=== PATIENT | male | born 1940 | race Caucasian/White ===

== ENCOUNTER → 2018-12-08 10:55 | Outpatient (CLI) | payer MEDICARE, OTHER, SELFPAY ==
[2018-12-08 11:40] LABS: Add Manual Diff / Slide Review NO; Basophils Absolute Auto 100 /uL (0-100); Basophils Percent Auto 1.1 % (0-2); Eosinophils Absolute Auto 300 /uL (0-450); Eosinophils Percent Auto 4.8 % (2-4); Hematocrit 42.8 % (41-53); Hemoglobin 14.4 g/dL (13.5-17.5); Lymphocytes Absolute Auto 1500 /uL (1100-4500); Lymphocytes Percent Auto 25.4 % (25-40); Mean Corpuscular HGB Conc 33.7 % (30-36); Mean Corpuscular Hemoglobin 33.3 PG (26-34); Mean Corpuscular Volume 98.8 fL (80-100); Monocytes Absolute Auto 400 /uL (0-900); Monocytes Percent Auto 6.7 % (3-14); Neutrophils Absolute Auto 3700 /uL (1500-7000); Platelet Count 174 X10^3/uL (150-400); Red Blood Cell Count 4.33 X10^6/uL (4.5-5.9); White Blood Cell Count 6.1 X10^3/uL (4.5-11.0)
[2018-12-08 11:59] LABS: B Type Natriuretic Peptide 199 (<100)
[2018-12-08 12:14] LABS: Alanine Aminotransferase 24 IU/L (21-72); Albumin 4.2 g/dL (3.5-5.0); Albumin Globulin Ratio 1.6 (1.0-2.8); Alkaline Phosphatase 43 U/L (38-126); Aspartate Aminotransferase 29 IU/L (17-59); BUN Creatinine Ratio 23.3 (6-22); Bilirubin Total 1.1 mg/dL (0.2-1.3); Blood Urea Nitrogen 21 mg/dL (9-20); Calcium 9.1 mg/dL (8.4-10.2); Carbon Dioxide 28 mmol/L (22-32); Chloride 106 mmol/L (98-107); Estimated Glomerular Filt Rate > 60.0 mL/min (>60); Globulin 2.7 g/dL (1.7-4.1); Glucose 98 mg/dL (80-110); HEMOLYSIS < 15 (0-50); Potassium 4.8 mmol/L (3.4-5.1); Sodium 142 mmol/L (137-145); Total Protein 6.9 g/dL (6.3-8.2)
[2018-12-08 12:19] LABS: High Sensitivity CRP - Cardiac 0.6 mg/L (1.0-3.0); Rheumatoid Factor < 8.6 IU/mL (<12.0)
[2018-12-08 12:32] LABS: Erythrocyte Sedimentation Rate 2 MM/HR (0-15)
[2018-12-10 20:22] LABS: ANA Screen, IFA Negative (Negative)
[2018-12-11 00:20] LABS: Alpha 1 Globulin 0.2 g/dL (0.2-0.3); Alpha 2 Globulin 0.6 g/dL (0.5-0.9); Beta 1 Globulin 0.4 g/dL (0.4-0.6); Gamma Globulin 0.9 g/dL (0.8-1.7); Protein, Total 6.4 g/dL (6.1-8.1)
== END ==
PROVIDERS: Visit Provider Family Medicine
DX: R53.83 Other fatigue (principal); R05 Cough; R06.00 Dyspnea, unspecified
CPT/HCPCS: 36415; 80053; 83880; 84155; 84165; 85025; 85651; 86038; 86140; 86335; 86430

== ENCOUNTER → 2019-02-02 09:35 | Outpatient (CLI) | payer MEDICARE, OTHER, SELFPAY ==
[2019-02-02 10:03] LABS: Add Manual Diff / Slide Review NO; Basophils Absolute Auto 100 /uL (0-100); Eosinophils Absolute Auto 300 /uL (0-450); Eosinophils Percent Auto 5.6 % (2-4); Hematocrit 43.5 % (41-53); Hemoglobin 14.6 g/dL (13.5-17.5); Lymphocytes Absolute Auto 1700 /uL (1100-4500); Lymphocytes Percent Auto 28.8 % (25-40); Mean Corpuscular HGB Conc 33.5 % (30-36); Mean Corpuscular Hemoglobin 32.9 PG (26-34); Mean Corpuscular Volume 98.1 fL (80-100); Monocytes Absolute Auto 500 /uL (0-900); Monocytes Percent Auto 7.8 % (3-14); Neutrophils Absolute Auto 3300 /uL (1500-7000); Neutrophils Percent Auto 56.8 % (50-75); Platelet Count 161 X10^3/uL (150-400); Red Blood Cell Count 4.43 X10^6/uL (4.5-5.9); Red Cell Distribution Width 12.8 % (11.6-14.8); White Blood Cell Count 5.8 X10^3/uL (4.5-11.0)
[2019-02-02 10:16] LABS: B Type Natriuretic Peptide < 100 (<100)
[2019-02-02 10:17] LABS: Alanine Aminotransferase 30 IU/L (21-72); Albumin 4.3 g/dL (3.5-5.0); Albumin Globulin Ratio 1.5 (1.0-2.8); Alkaline Phosphatase 46 U/L (38-126); Aspartate Aminotransferase 31 IU/L (17-59); Bilirubin Total 0.8 mg/dL (0.2-1.3); Blood Urea Nitrogen 30 mg/dL (9-20); Calcium 9.3 mg/dL (8.4-10.2); Carbon Dioxide 27 mmol/L (22-32); Chloride 106 mmol/L (98-107); Estimated Glomerular Filt Rate > 60.0 mL/min (>60); Globulin 2.8 g/dL (1.7-4.1); Glucose 101 mg/dL (80-110); HEMOLYSIS < 15 (0-50); Potassium 3.9 mmol/L (3.4-5.1); Sodium 142 mmol/L (137-145); Total Protein 7.1 g/dL (6.3-8.2)
[2019-02-02 10:20] LABS: Erythrocyte Sedimentation Rate 4 MM/HR (0-15)
[2019-02-02 10:23] LABS: High Sensitivity CRP - Cardiac 0.4 mg/L (1.0-3.0); Rheumatoid Factor < 8.6 IU/mL (<12.0)
[2019-02-04 20:14] LABS: ANA Screen, IFA Negative (Negative)
[2019-02-05 04:31] LABS: Alpha 1 Globulin 0.4 g/dL (0.2-0.3); Alpha 2 Globulin 0.6 g/dL (0.5-0.9); Beta 1 Globulin 0.4 g/dL (0.4-0.6); Gamma Globulin 0.8 g/dL (0.8-1.7); Protein, Total 6.5 g/dL (6.1-8.1)
== END ==
PROVIDERS: PCP Family Medicine; Visit Provider Family Medicine
DX: R06.00 Dyspnea, unspecified (principal); R53.83 Other fatigue; R05 Cough
CPT/HCPCS: 36415; 80053; 83880; 84155; 84165; 85025; 85651; 86038; 86140; 86335; 86430

== ENCOUNTER → 2019-02-10 14:03 | Outpatient (CLI) | payer MEDICARE, OTHER, SELFPAY ==
--- NOTE | 2019-02-10 | DI.CT.S_ITS ---
PROCEDURE: CT ABDOMEN PELVIS W CON INDICATIONS: FLANK PAIN,PAIN OF UPPER ABDOMEN TECHNIQUE: After the administration of oral and intravenous contrast, 5 mm thick sections acquired from the diaphragms to the symphysis. 5 mm thick coronal and sagittal reformats were performed. For radiation dose reduction, the following was used: automated exposure control, adjustment of mA and/or kV according to patient size. COMPARISON: [facility], , CHEST 1 VIEW, 08/08/2017, 18:03. FINDINGS: Image quality: Excellent. ABDOMEN: Lung bases: Lung bases are clear. Heart size is normal. Solid organs: Liver is normal in size and enhancement. Gallbladder is unremarkable. Biliary system is non-dilated. Pancreas enhances normally. Spleen is normal in size. There is a 4 mm hypoattenuated focus within the lateral spleen which is too small to fully characterize on this exam but likely represents a splenic cyst or hemangioma.. No adrenal nodules. Kidneys are normal in size and enhancement, without hydronephrosis. No nephrolithiasis. There is a 2.5 cm oval circumscribed exophytic lesion arising from the mid right kidney with attenuation characteristics measuring at approximately 20 Hounsfield units. Peritoneum and bowel: There are postsurgical changes and clips adjacent to gastroesophageal junction. There is descending and sigmoid colon diverticulosis. There is minimal haziness/coarsening of the mesenteric fat adjacent the descending colon. No free fluid or air. Normal appendix is seen on axial image 34 of series 2. Nodes and vessels: No retroperitoneal or mesenteric adenopathy. Aorta and inferior vena cava are normal in caliber. There is moderate calcified plaque of the abdominal aorta and branch vessels. Miscellaneous: No ventral hernias. PELVIS: Genitourinary: Bladder wall thickness is normal. Miscellaneous: No inguinal hernias or adenopathy. Bones: There is a 0.5 cm osseous lucency within the right sacrum which may represent the sequela of adjacent right sacroiliac joint degenerative change. Mild multilevel degenerative changes of the lumbar spine. IMPRESSION: 1. Minimal haziness/coarsening of the mesenteric fat adjacent the descending colon, which may represent a low-grade early colitis/diverticulitis in the appropriate clinical setting versus prominent mesenteric pericolonic vasculature. Clinical correlation for sinusitis symptoms recommended. 2. 2.5 cm exophytic lesion arising from the mid right kidney likely represents an exophytic proteinaceous or hemorrhagic cyst given density characteristics; consider followup ultrasound versus CT to demonstrate stability if there is continued clinical concern. 3. 0.5 cm osseous lucency within the right sacrum which is nonspecific and may represent sequela of adjacent right sacroiliac joint degenerative change; a followup exam to demonstrate stability can be considered if there is continued clinical concern. Dictated by: Guzman Garcia M.D. on 02/10/2019 at 18:24 Approved by: Guzman Garcia M.D. on 02/10/2019 at 18:43
== END ==
PROVIDERS: PCP Family Medicine; Visit Provider Family Medicine
DX: R10.9 Unspecified abdominal pain (principal)
CPT/HCPCS: 74177; Q9967

== ENCOUNTER → 2019-02-26 13:03 | Outpatient (CLI) | payer MEDICARE, OTHER, SELFPAY ==
--- NOTE | 2019-03-05 08:57 | PM.PFT.1 ---
Pulmonary Function Test Referral & Results Date Patient Seen: 02/26/19 Requesting provider: Bart Schwab Results: The spirometry demonstrates an FVC of 3.99 L which is 95% of predicted. The FEV1 was measured at 2.80 L which is 94% of predicted. The FEV1/FVC ratio was 70 which is 98% of predicted. Following the administration of bronchodilator there was no appreciable change to above normal numbers. Lung volumes show an SVC of 4.15 L which is 91% of predicted. The diffusing capacity was measured at 26.89 which is 79% of predicted. No hemoglobin value was provided, so no correction for potential anemia could be made, if appropriate. The maximum voluntary ventilation was normal Interpretation: This study demonstrates normal spirometry There may be a slight reduction in diffusing capacity suggesting some element of disease at the capillary alveolar level, unless patient is anemic
== END ==
PROVIDERS: PCP Family Medicine; Visit Provider Family Medicine
DX: R06.02 Shortness of breath (principal); R06.09 Other forms of dyspnea; J44.9 Chronic obstructive pulmonary disease, unspecified
CPT/HCPCS: 94060; 94726; 94729

== ENCOUNTER → 2019-03-17 10:34 | Outpatient (CLI) | payer MEDICARE, OTHER, SELFPAY ==
--- NOTE | 2019-03-17 | DI.CT.S_ITS ---
PROCEDURE: CT CHEST WO CON INDICATIONS: Hemoptysis TECHNIQUE: Noncontrast 5 mm thick sections acquired from the pulmonary apices to the posterior costophrenic angles. 1 mm lung window, 5 mm thick coronal and sagittal and 7 mm axial MIP reformats were then acquired. For radiation dose reduction, the following was used: automated exposure control, adjustment of mA and/or kV according to patient size. COMPARISON: [facility], , CHEST 1 VIEW, 08/08/2017, 18:03. FINDINGS: Image quality: Excellent. Lungs and pleura: No acute air space opacities. 7 mm peripheral right middle lobe nodule seen on image 189, series 3. There is a 6 mm posterior, peripheral right lower lobe nodule seen on image 144, series 3. Subsegmental atelectasis versus scarring of the lingula. No pleural effusions or pneumothorax. Central and peripheral airways are patent and normal in caliber. Mediastinum: Heart size is normal. No pericardial effusion. Scattered atherosclerotic calcifications of the coronary arteries are noted. The No mediastinal adenopathy by size criteria. Thoracic aorta and central pulmonary arteries are normal in size. Esophagus is normal in caliber. No hiatal hernia. Bones and chest wall: No suspicious bony lesions. No acute vertebral body compression fractures. Multilevel spondylitic changes throughout the imaged spine. No axillary or supraclavicular adenopathy by size criteria. Thyroid gland is incompletely imaged, but there is suggestion of a 1.4 cm right thyroid lobe hypodense nodule. Mild bilateral gynecomastia. Abdomen: Multiple surgical clips noted at the gastroesophageal junction. Visualized upper abdominal solid organs and bowel loops appear normal in the absence of contrast. IMPRESSION: 1. CT chest without acute cardiopulmonary abnormalities. 2. There is a noncalcified 7 mm right middle lobe pulmonary nodule and a noncalcified 6 mm right lower lobe pulmonary nodule. Recommend short interval followup chest CT in 3-6 months to document stability. 3. Possible 1.4 cm right thyroid lobe hypodense nodule. Consider dedicated thyroid ultrasound for further evaluation. Dictated by: Brijesh Kc M.D. on 03/17/2019 at 17:38 Approved by: Brijesh Kc M.D. on 03/17/2019 at 17:50
== END ==
PROVIDERS: PCP Family Medicine; Visit Provider Family Medicine
DX: R04.2 Hemoptysis (principal); R91.8 Other nonspecific abnormal finding of lung field; I25.10 Atherosclerotic heart disease of native coronary artery without angina pectoris
CPT/HCPCS: 71250

== ENCOUNTER → 2021-03-26 09:37 | Outpatient (CLI) | payer MEDICARE, OTHER, SELFPAY ==
[2021-03-26 20:24] LABS: Add Manual Diff / Slide Review NO; Basophils Absolute Auto 0 /uL (0-100); Basophils Percent Auto 0.7 % (0-2); Eosinophils Absolute Auto 200 /uL (0-450); Eosinophils Percent Auto 2.8 % (2-4); Hematocrit 45.8 % (41-53); Hemoglobin 14.8 g/dL (13.5-17.5); Lymphocytes Absolute Auto 1800 /uL (1100-4500); Lymphocytes Percent Auto 30.7 % (25-40); Mean Corpuscular HGB Conc 32.3 % (30-36); Mean Corpuscular Hemoglobin 30.3 PG (26-34); Monocytes Absolute Auto 400 /uL (0-900); Monocytes Percent Auto 6.3 % (3-14); Neutrophils Absolute Auto 3400 /uL (1500-7000); Neutrophils Percent Auto 59.5 % (50-75); Platelet Count 132 X10^3/uL (150-400); Red Blood Cell Count 4.87 X10^6/uL (4.5-5.9); Red Cell Distribution Width 14.4 % (11.6-14.8); White Blood Cell Count 5.8 X10^3/uL (4.5-11.0)
[2021-03-26 20:33] LABS: Alanine Aminotransferase 29 IU/L (<50); Albumin Globulin Ratio 1.7 (1.0-2.8); Alkaline Phosphatase 48 U/L (38-126); Aspartate Aminotransferase 26 IU/L (17-59); BUN Creatinine Ratio 23.8 (6-22); Bilirubin Total 0.7 mg/dL (0.2-1.3); Blood Urea Nitrogen 20 mg/dL (9-20); Calcium 9.2 mg/dL (8.4-10.2); Carbon Dioxide 33 mmol/L (22-32); Chloride 102 mmol/L (98-107); Estimated Glomerular Filt Rate > 60.0 mL/min (>60); Globulin 2.4 g/dL (1.7-4.1); Glucose 76 mg/dL (80-110); HEMOLYSIS < 15 (0-50); Potassium 4.2 mmol/L (3.4-5.1); Sodium 141 mmol/L (137-145); Total Protein 6.4 g/dL (6.3-8.2)
[2021-03-26 21:03] LABS: TSH w/ Reflex to FT4 0.91 uIU/mL (0.47-4.68)
[2021-03-26 21:22] LABS: Vitamin B12 310 pg/mL (239-931)
[2021-03-26 21:28] LABS: Hep C Virus Ab w/Reflex Quant NEGATIVE s/c (NEGATIVE)
== END ==
PROVIDERS: PCP Family Medicine; Visit Provider Physician Assistant
DX: F33.41 Major depressive disorder, recurrent, in partial remission (principal); I63.9 Cerebral infarction, unspecified; G62.9 Polyneuropathy, unspecified; I48.91 Unspecified atrial fibrillation; L29.9 Pruritus, unspecified; Z86.59 Personal history of other mental and behavioral disorders
CPT/HCPCS: 80053; 82607; 84443; 85025; 86803

== ENCOUNTER → 2021-11-07 12:29 | Outpatient (CLI) | payer MEDICARE, OTHER, SELFPAY ==
[2021-11-07 19:56] LABS: Hemoglobin A1C% w Est Avg Glu 5.7 % (4.0-6.0)
[2021-11-07 19:57] LABS: Alanine Aminotransferase 22 IU/L (<50); Albumin 4.4 g/dL (3.5-5.0); Albumin Globulin Ratio 1.8 (1.0-2.8); Alkaline Phosphatase 58 U/L (38-126); Aspartate Aminotransferase 27 IU/L (17-59); BUN Creatinine Ratio 23.6 (6-22); Bilirubin Total 0.8 mg/dL (0.2-1.3); Blood Urea Nitrogen 21 mg/dL (9-20); Carbon Dioxide 29 mmol/L (22-32); Chloride 104 mmol/L (98-107); Cholesterol 158 mg/dL (140-199); Estimated Glomerular Filt Rate > 60 mL/min (>60); Globulin 2.5 g/dL (1.7-4.1); Glucose 80 mg/dL (80-110); HDL Cholesterol 55 mg/dL (40-60); HEMOLYSIS < 15 (0-50); LDL Cholesterol Calculated 74 mg/dL (<100); Potassium 4.6 mmol/L (3.4-5.1); Sodium 140 mmol/L (137-145); Total Protein 6.9 g/dL (6.3-8.2); Triglycerides 143 mg/dL (35-150); Uric Acid 5.5 mg/dL (3.5-8.5)
[2021-11-07 19:58] LABS: NT-proBNP (BNP-Adult 18+) 491 pg/mL (<450)
[2021-11-07 20:11] LABS: Add Manual Diff / Slide Review NO; Basophils Absolute Auto 100 /uL (0-100); Basophils Percent Auto 0.9 % (0-2); Eosinophils Absolute Auto 300 /uL (0-450); Eosinophils Percent Auto 4.3 % (2-4); Hematocrit 42.8 % (41-53); Hemoglobin 14.1 g/dL (13.5-17.5); Lymphocytes Absolute Auto 1900 /uL (1100-4500); Lymphocytes Percent Auto 30.5 % (25-40); Mean Corpuscular Hemoglobin 30.1 PG (26-34); Mean Corpuscular Volume 91.2 fL (80-100); Monocytes Absolute Auto 400 /uL (0-900); Monocytes Percent Auto 6.2 % (3-14); Neutrophils Absolute Auto 3600 /uL (1500-7000); Neutrophils Percent Auto 58.1 % (50-75); Platelet Count 169 X10^3/uL (150-400); Red Blood Cell Count 4.69 X10^6/uL (4.5-5.9); Red Cell Distribution Width 13.6 % (11.6-14.8); White Blood Cell Count 6.2 X10^3/uL (4.5-11.0)
[2021-11-07 20:35] LABS: Erythrocyte Sedimentation Rate 4 MM/HR (0-15)
[2021-11-07 20:39] LABS: Vitamin B12 > 1000 pg/mL (239-931)
[2021-11-07 20:42] LABS: TSH w/ Reflex to FT4 2.29 uIU/mL (0.47-4.68)
[2021-11-12 15:47] LABS: Albumin 4.1 g/dL (2.9-4.4); Alpha 1 Globulin 0.2 g/dL (0.0-0.4); Alpha 2 Globulin 0.6 g/dL (0.4-1.0); Beta 1 Globulin 0.9 g/dL (0.7-1.3); Gamma Globulin 0.8 g/dL (0.4-1.8); Protein, Total 6.6 g/dL (6.0-8.5)
== END ==
PROVIDERS: PCP Family Medicine; Visit Provider Family Medicine
DX: I51.7 Cardiomegaly (principal); I50.22 Chronic systolic (congestive) heart failure; E26.1 Secondary hyperaldosteronism; G62.9 Polyneuropathy, unspecified; D68.69 Other thrombophilia; E78.2 Mixed hyperlipidemia; F10.21 Alcohol dependence, in remission; F33.41 Major depressive disorder, recurrent, in partial remission; I48.91 Unspecified atrial fibrillation; I50.32 Chronic diastolic (congestive) heart failure; I73.9 Peripheral vascular disease, unspecified; I77.810 Thoracic aortic ectasia; M10.9 Gout, unspecified; Z79.01 Long term (current) use of anticoagulants; Z85.820 Personal history of malignant melanoma of skin; Z86.19 Personal history of other infectious and parasitic diseases; Z86.73 Personal history of transient ischemic attack (TIA), and cerebral infarction without residual deficits; Z87.898 Personal history of other specified conditions; M75.101 Unspecified rotator cuff tear or rupture of right shoulder, not specified as traumatic
CPT/HCPCS: 80053; 80061; 82607; 83036; 83880; 84155; 84165; 84443; 84550; 85025; 85651

== ENCOUNTER → 2022-02-24 10:42 | Outpatient (CLI) | payer MEDICARE, SELFPAY ==
--- NOTE | 2022-02-24 10:44 | DI.MRI.S_ITS ---
PROCEDURE: MR LUMBAR SPINE WO CON INDICATIONS: lower extremity neuropathy TECHNIQUE: Noncontrast sagittal T1 spin echo and T2 fast echo, sagittal STIR, and T2 fast spin echo through the lumbar spine. In cases with scoliosis, additional coronal T2 fast spin echo may be performed. COMPARISON: [facility], CT, CT ABDOMEN PELVIS W CON, 02/10/2019, 15:23. FINDINGS: Image quality: Excellent. Alignment and Curvature: Trace degenerative retrolisthesis of L1 on L2, of L2 on L3, and of L3 on L4. Trace degenerative anterolisthesis of L4 on L5. Bone Marrow: Marrow is of normal overall signal. No acute vertebral body compression fractures. Spinal Cord: Conus medullaris terminates at the L1 level. Visualized cord demonstrates normal signal and size. Paraspinous Soft Tissues: No paravertebral masses. T12-L1: Minimal disc bulge. No canal stenosis or foraminal stenosis. L1-L2: Trace retrolisthesis, mild disc bulge. Borderline canal stenosis. Facet hypertrophy. Mild bilateral foraminal narrowing. L2-L3: Disc bulge. Trace retrolisthesis of L2 on L3. Facet hypertrophy. Epidural lipomatosis. Jnsk-ug-[id number] canal stenosis, underestimated on choice of axial plane. L3-L4: Disc bulge. Facet hypertrophy. Epidural lipomatosis. Moderate canal stenosis. Moderate bilateral foraminal narrowing with mild flattening deformity on the exiting bilateral L3 nerve roots. L4-L5: Trace anterolisthesis of L4 on L5. Disc bulge. Facet hypertrophy. Epidural lipomatosis. Moderate canal stenosis. Otlu-[id number] bilateral foraminal stenosis. L5-S1: Disc bulge. Facet hypertrophy. No canal stenosis. [id number] right foraminal stenosis. IMPRESSION: 1. There is underlying multilevel facet arthropathy. 2. Epidural lipomatosis contributes to multilevel canal stenosis. 3. Canal stenosis is mild to moderate at L2-L3, moderate at L3-L4, and moderate at L4-L5. 4. Multilevel foraminal narrowing as described above. Dictated by: Gustavo Talley M.D. on 02/26/2022 at 15:19 Approved by: Gustavo Talley M.D. on 02/26/2022 at 15:46
== END ==
PROVIDERS: PCP Family Medicine; Referring Provider Family Medicine; Visit Provider Family Medicine
DX: M54.16 Radiculopathy, lumbar region (principal); M47.816 Spondylosis without myelopathy or radiculopathy, lumbar region; E88.2 Lipomatosis, not elsewhere classified; M48.061 Spinal stenosis, lumbar region without neurogenic claudication
CPT/HCPCS: 72148

== ENCOUNTER → 2022-07-16 11:30 | Outpatient (CLI) | payer MEDICARE, SELFPAY | PROVIDERS: PCP Family Medicine; Visit Provider Physician Assistant | DX: T14.8XXA Other injury of unspecified body region, initial encounter (principal); W57.XXXA Bitten or stung by nonvenomous insect and other nonvenomous arthropods, initial encounter | CPT/HCPCS: 86617 ==

== ENCOUNTER → 2022-08-20 11:01 | Outpatient (CLI) | payer MEDICARE, SELFPAY ==
[2022-08-20 20:18] LABS: Add Manual Diff / Slide Review NO; Basophils Absolute Auto 100 /uL (0-100); Basophils Percent Auto 1.3 % (0-2); Eosinophils Absolute Auto 200 /uL (0-450); Eosinophils Percent Auto 4.3 % (2-4); Hematocrit 41.2 % (41-53); Hemoglobin 13.6 g/dL (13.5-17.5); Lymphocytes Absolute Auto 1600 /uL (1100-4500); Mean Corpuscular HGB Conc 32.9 % (30-36); Mean Corpuscular Volume 91.1 fL (80-100); Monocytes Absolute Auto 400 /uL (0-900); Monocytes Percent Auto 7.8 % (3-14); Neutrophils Absolute Auto 3100 /uL (1500-7000); Neutrophils Percent Auto 56.6 % (50-75); Platelet Count 139 X10^3/uL (150-400); Red Blood Cell Count 4.52 X10^6/uL (4.5-5.9); Red Cell Distribution Width 15.2 % (11.6-14.8); White Blood Cell Count 5.4 X10^3/uL (4.5-11.0)
[2022-08-20 20:30] LABS: D Dimer 421 ng/ml (<500)
[2022-08-20 20:31] LABS: Alanine Aminotransferase 27 IU/L (<50); Albumin 3.9 g/dL (3.5-5.0); Albumin Globulin Ratio 1.5 (1.0-2.8); Alkaline Phosphatase 57 U/L (38-126); Aspartate Aminotransferase 32 IU/L (17-59); BUN Creatinine Ratio 23.9 (6-22); Bilirubin Total 0.8 mg/dL (0.2-1.3); Blood Urea Nitrogen 17 mg/dL (9-20); Calcium 8.5 mg/dL (8.4-10.2); Carbon Dioxide 28 mmol/L (22-32); Chloride 104 mmol/L (98-107); Estimated Glomerular Filt Rate > 60 mL/min (>60); Globulin 2.6 g/dL (1.7-4.1); Glucose 61 mg/dL (80-110); HEMOLYSIS < 15 (0-50); Magnesium 1.9 mg/dL (1.6-2.3); Potassium 4.4 mmol/L (3.4-5.1); Sodium 141 mmol/L (137-145); Total Protein 6.5 g/dL (6.3-8.2)
[2022-08-20 20:39] LABS: NT-proBNP (BNP-Adult 18+) 1150 pg/mL (<450)
== END ==
PROVIDERS: PCP Family Medicine; Visit Provider Physician Assistant
DX: I48.91 Unspecified atrial fibrillation (principal); R06.02 Shortness of breath; R06.2 Wheezing; Z86.73 Personal history of transient ischemic attack (TIA), and cerebral infarction without residual deficits
CPT/HCPCS: 80053; 83735; 83880; 85025; 85379

== ENCOUNTER → 2022-08-28 14:54 | Outpatient (CLI) | payer MEDICARE, SELFPAY ==
--- NOTE | 2022-08-28 14:56 | DI.US.S_ITS ---
PROCEDURE: US THYROID INDICATIONS: ?1.4cm right thyroid lobe hypodense nodule 02/2019 CT chest TECHNIQUE: Real-time scanning was performed of the thyroid gland, with image documentation. COMPARISON: None. FINDINGS: Right: Thyroid lobe measures 4.2 x 2.2 x 2.5 cm, and is heterogeneous in echotexture. Left: Thyroid lobe measures 4.8 x 2.3 x 2.4 cm, and is heterogeneous in echotexture. Isthmus: 5 mm thick. Nodule number: 1 Location: Right superior Size: 1.7 x 1.1 x 1.6 cm. Composition: Solid Echogenicity: Hypoechoic Shape: wider than tall. Margins: Smooth Echogenic foci: Non Total points: 4 ACR TI-RADS category: 4 Nodule number: 2 Location: Right inferior Size: 0.8 x 0.7 x 0.8 cm. Composition: Cystic Echogenicity: Hypoechoic/anechoic Shape: wider than tall. Margins: Small Echogenic foci: Non Total points: 2 ACR TI-RADS category: 2 Nodule number: 3 Location: Left superior Size: 1.6 x 0.8 x 0.9 cm. Composition: Cyst Echogenicity: Hypoechoic/anechoic Shape: wider than tall. Margins: Small Echogenic foci: None Total points: 2 ACR TI-RADS category: 2 Nodule number: 4 Location: Left inferior Size: 1.0 x 1.5 x 1.4 cm. Composition: Cystic Echogenicity: Anechoic Shape: wider than tall. Margins: Smooth Echogenic foci: None Total points: 0 ACR TI-RADS category: 1 IMPRESSION: 1. Thyroid nodules are present bilaterally. Recommend fine-needle aspiration biopsy of nodule 1. ACR TI-RADS definitions and recommendations: TI-RADS 1 (benign): 0 points. FNA not needed. TI-RADS 2 (not suspicious): 2 points. FNA not needed. TI-RADS 3 (mildly suspicious): 3 points. * FNA if 2.5 cm or larger, follow up if 1.5 cm or larger (at 1, 3, and 5 years). TI-RADS 4 (moderately suspicious): 4-6 points. * FNA if 1.5 cm or larger, follow up if 1 cm or larger (at 1, 2, 3, and 5 years). TI-RADS 5 (highly suspicious): 7 points or more. * FNA if 1 cm or larger, follow up if 0.5 cm or larger (every year for 5 years). Dictated by: Jessica Fernandez M.D. on 08/29/2022 at 9:39 Approved by: Jessica Fernandez M.D. on 08/29/2022 at 9:46
--- NOTE | 2022-08-28 14:56 | DI.CT.S_ITS ---
PROCEDURE: CT CHEST WO CON INDICATIONS: f/u CT chest. pulmonary nodules. new wheezing/shortness of breath TECHNIQUE: Noncontrast 5 mm thick sections acquired from the pulmonary apices to the posterior costophrenic angles. 1 mm lung window, 5 mm thick coronal and sagittal and 7 mm axial MIP reformats were then acquired. For radiation dose reduction, the following was used: automated exposure control, adjustment of mA and/or kV according to patient size. COMPARISON: [facility], CT, CT CHEST WO CON, 03/17/2019, 10:35. FINDINGS: Lungs and pleura: No consolidation or pleural effusion. Unchanged 7 mm right middle lobe nodule along the fissure (3/166), probably an intrapulmonary lymph node. 6 mm posterior right lower lobe nodule (3/146) is also unchanged. Calcified pleural plaques present as before. Mediastinum: Multi chamber cardiac enlargement. No pericardial effusion. Ectasia of the ascending thoracic aorta measuring 4.2 cm, measured at the level of the right pulmonary artery. Esophagus is normal in caliber. Bones and chest wall: Multilevel degenerative change of the visualized spine. No axillary or supraclavicular adenopathy by size criteria. Abdomen: Visualized upper abdominal solid organs and bowel loops appear unremarkable in the absence of contrast. IMPRESSION: 1. No consolidation or pleural effusion. 2. No significant change in previously demonstrated small pulmonary nodules. 3. Calcified pleural plaques redemonstrated, correlation for prior asbestos exposure may be helpful. 4. Cardiomegaly. Dictated by: Alexandro Agrawal M.D. on 08/28/2022 at 16:08 Approved by: Alexandro Agrawal M.D. on 08/28/2022 at 16:21
== END ==
PROVIDERS: PCP Physician Assistant; Referring Provider Physician Assistant; Visit Provider Physician Assistant
DX: J92.9 Pleural plaque without asbestos (principal); I77.810 Thoracic aortic ectasia; I51.7 Cardiomegaly; R93.89 Abnormal findings on diagnostic imaging of other specified body structures; R91.8 Other nonspecific abnormal finding of lung field; R06.02 Shortness of breath; R06.2 Wheezing
CPT/HCPCS: 71250; 76536

== ENCOUNTER → 2022-10-14 11:08 | Outpatient (CLI) | payer MEDICARE, SELFPAY ==
[2022-10-14 20:17] LABS: INR 1.4 (0.9-1.3); Prothrombin Time 16.4 SECONDS (10.1-12.7)
[2022-10-14 20:20] LABS: PTT Partial Thromboplastin Tim 37 SECONDS (26-36)
[2022-10-14 20:35] LABS: BUN Creatinine Ratio 22.4 (6-22); Blood Urea Nitrogen 17 mg/dL (9-20); Calcium 8.5 mg/dL (8.4-10.2); Carbon Dioxide 29 mmol/L (22-32); Chloride 104 mmol/L (98-107); Cholesterol 142 mg/dL (140-199); Estimated Glomerular Filt Rate > 60 mL/min (>60); Glucose 87 mg/dL (80-110); HDL Cholesterol 60 mg/dL (40-60); HEMOLYSIS < 15 (0-50); LDL Cholesterol Calculated 65 mg/dL (<100); Potassium 4.1 mmol/L (3.4-5.1); Sodium 139 mmol/L (137-145); Triglycerides 85 mg/dL (35-150)
[2022-10-14 20:37] LABS: NT-proBNP (BNP-Adult 18+) 1150 pg/mL (<450)
[2022-10-14 20:38] LABS: Free T3, Triiodothyronine Free 2.57 pg/mL (2.77-5.27)
[2022-10-14 20:55] LABS: TSH w/ Reflex to FT4 1.81 uIU/mL (0.47-4.68)
== END ==
PROVIDERS: PCP Physician Assistant; Visit Provider Family Medicine
DX: E04.1 Nontoxic single thyroid nodule (principal); E78.2 Mixed hyperlipidemia; I10 Essential (primary) hypertension; I50.22 Chronic systolic (congestive) heart failure; I48.21 Permanent atrial fibrillation; Z79.01 Long term (current) use of anticoagulants
CPT/HCPCS: 80048; 80061; 83880; 84443; 84481; 85610; 85730

== ENCOUNTER → 2022-12-17 10:26 | Outpatient (CLI) | payer MEDICARE, SELFPAY ==
--- NOTE | 2022-12-17 10:28 | DI.US.S_ITS ---
PROCEDURE: US PERIPH VENOUS LOW EXTREM RT INDICATIONS: PERSISTENT SWELLING - RULE OUT DEEP VEIN THROMBOSIS TECHNIQUE: Real-time imaging, as well as color and pulse Doppler interrogation, were performed of the lower extremity deep veins from the inguinal ligament to the popliteal fossa. COMPARISON: None. FINDINGS: The common femoral, femoral and popliteal veins are normally compressible, and free of intraluminal thrombus. Color and pulse Doppler demonstrate normal phasic intraluminal flow. There is normal augmentation response to distal compression maneuver. IMPRESSION: No evidence of deep vein thrombosis involving the right lower extremity. Dictated by: Vanessa Boothe MD, PhD on 12/17/2022 at 14:45 Approved by: Vanessa Boothe MD, PhD on 12/17/2022 at 14:46
== END ==
PROVIDERS: PCP Family Medicine; Referring Provider Family Medicine; Visit Provider Family Medicine
DX: R22.41 Localized swelling, mass and lump, right lower limb (principal)
CPT/HCPCS: 93971

== ENCOUNTER → 2023-03-04 11:35 | Outpatient (CLI) | payer MEDICARE, SELFPAY ==
[2023-03-04 19:56] LABS: Add Manual Diff / Slide Review NO; Basophils Absolute Auto 0 /uL (0-100); Basophils Percent Auto 0.4 % (0-2); Eosinophils Absolute Auto 100 /uL (0-450); Eosinophils Percent Auto 1.5 % (2-4); Hematocrit 40.3 % (41-53); Hemoglobin 13.2 g/dL (13.5-17.5); Lymphocytes Absolute Auto 1200 /uL (1100-4500); Lymphocytes Percent Auto 16.5 % (25-40); Mean Corpuscular HGB Conc 32.7 % (30-36); Mean Corpuscular Hemoglobin 29.2 PG (26-34); Mean Corpuscular Volume 89.2 fL (80-100); Monocytes Absolute Auto 300 /uL (0-900); Monocytes Percent Auto 4.4 % (3-14); Neutrophils Absolute Auto 5500 /uL (1500-7000); Neutrophils Percent Auto 77.2 % (50-75); Platelet Count 133 X10^3/uL (150-400); Red Blood Cell Count 4.52 X10^6/uL (4.5-5.9); Red Cell Distribution Width 15.1 % (11.6-14.8); White Blood Cell Count 7.1 X10^3/uL (4.5-11.0)
[2023-03-04 20:10] LABS: Alanine Aminotransferase 46 IU/L (<50); Albumin 3.7 g/dL (3.5-5.0); Albumin Globulin Ratio 1.3 (1.0-2.8); Alkaline Phosphatase 49 U/L (38-126); Aspartate Aminotransferase 38 IU/L (17-59); BUN Creatinine Ratio 23.3 (6-22); Bilirubin Total 0.9 mg/dL (0.2-1.3); Blood Urea Nitrogen 21 mg/dL (9-20); Calcium 8.3 mg/dL (8.4-10.2); Carbon Dioxide 28 mmol/L (22-32); Chloride 103 mmol/L (98-107); Cholesterol 151 mg/dL (140-199); Estimated Glomerular Filt Rate > 60 mL/min (>60); Globulin 2.8 g/dL (1.7-4.1); Glucose 76 mg/dL (80-110); HDL Cholesterol 63 mg/dL (40-60); HEMOLYSIS < 15 (0-50); LDL Cholesterol Calculated 71 mg/dL (<100); Potassium 4.7 mmol/L (3.4-5.1); Sodium 138 mmol/L (137-145); Total Protein 6.5 g/dL (6.3-8.2); Triglycerides 85 mg/dL (35-150); Uric Acid 5.4 mg/dL (3.5-8.5)
[2023-03-04 20:34] LABS: TSH w/ Reflex to FT4 1.47 uIU/mL (0.47-4.68)
== END ==
PROVIDERS: PCP Family Medicine; Visit Provider Family Medicine
DX: E26.1 Secondary hyperaldosteronism (principal); E78.2 Mixed hyperlipidemia; G62.9 Polyneuropathy, unspecified; I10 Essential (primary) hypertension; M10.9 Gout, unspecified; Z86.73 Personal history of transient ischemic attack (TIA), and cerebral infarction without residual deficits
CPT/HCPCS: 80053; 80061; 84443; 84550; 85025

== ENCOUNTER → 2023-12-03 10:29 | Outpatient (CLI) | payer MEDICARE, SELFPAY ==
[2023-12-03 19:32] LABS: Add Manual Diff / Slide Review NO; Basophils Absolute Auto 0 /uL (0-100); Eosinophils Absolute Auto 100 /uL (0-450); Eosinophils Percent Auto 2.6 % (2-4); Hematocrit 31.4 % (41-53); Hemoglobin 9.9 g/dL (13.5-17.5); Lymphocytes Absolute Auto 1300 /uL (1100-4500); Lymphocytes Percent Auto 32.1 % (25-40); Mean Corpuscular HGB Conc 31.3 % (30-36); Mean Corpuscular Hemoglobin 24.6 PG (26-34); Mean Corpuscular Volume 78.6 fL (80-100); Monocytes Absolute Auto 300 /uL (0-900); Monocytes Percent Auto 7.1 % (3-14); Neutrophils Absolute Auto 2300 /uL (1500-7000); Neutrophils Percent Auto 57.2 % (50-75); Platelet Count 180 X10^3/uL (150-400); Red Cell Distribution Width 17.4 % (11.6-14.8); White Blood Cell Count 3.9 X10^3/uL (4.5-11.0)
[2023-12-03 20:09] LABS: BUN Creatinine Ratio 19.5 (6-22); Blood Urea Nitrogen 16 mg/dL (9-20); Calcium 8.3 mg/dL (8.4-10.2); Carbon Dioxide 29 mmol/L (22-32); Chloride 108 mmol/L (98-107); Estimated Glomerular Filt Rate > 60 mL/min (>60); Glucose 91 mg/dL (80-110); HEMOLYSIS < 15 (0-50); Potassium 3.8 mmol/L (3.4-5.1); Sodium 138 mmol/L (137-145)
[2023-12-03 20:17] LABS: NT-proBNP (BNP-Adult 18+) 966 pg/mL (<450)
== END ==
PROVIDERS: PCP Family Medicine; Visit Provider Family Medicine
DX: I50.9 Heart failure, unspecified (principal); R06.02 Shortness of breath
CPT/HCPCS: 80048; 83880; 85025

== ENCOUNTER → 2023-12-30 13:57 | Outpatient (CLI) | payer MEDICARE, SELFPAY ==
[2024-01-01 18:10] LABS: Fecal Immunochemical Test Positive (Negative)
== END ==
PROVIDERS: PCP Family Medicine; Visit Provider Family Medicine
DX: Z12.11 Encounter for screening for malignant neoplasm of colon (principal); D64.9 Anemia, unspecified
CPT/HCPCS: 82274

== ENCOUNTER → 2024-01-14 11:50 | Outpatient (CLI) | payer MEDICARE, SELFPAY ==
[2024-01-14 20:31] LABS: HEMOLYSIS < 15 (0-50); Iron 38 ug/dL (49-181)
[2024-01-14 20:41] LABS: Add Manual Diff / Slide Review NO; Basophils Absolute Auto 0 /uL (0-100); Basophils Percent Auto 0.6 % (0-2); Eosinophils Absolute Auto 100 /uL (0-450); Eosinophils Percent Auto 1.1 % (2-4); Hematocrit 30.7 % (41-53); Hemoglobin 9.9 g/dL (13.5-17.5); Lymphocytes Absolute Auto 1500 /uL (1100-4500); Lymphocytes Percent Auto 19.3 % (25-40); Mean Corpuscular HGB Conc 32.2 % (30-36); Mean Corpuscular Volume 74.5 fL (80-100); Monocytes Absolute Auto 500 /uL (0-900); Monocytes Percent Auto 6.6 % (3-14); Neutrophils Absolute Auto 5600 /uL (1500-7000); Neutrophils Percent Auto 72.4 % (50-75); Platelet Count 174 X10^3/uL (150-400); Red Blood Cell Count 4.12 X10^6/uL (4.5-5.9); Red Cell Distribution Width 17.1 % (11.6-14.8); White Blood Cell Count 7.8 X10^3/uL (4.5-11.0)
[2024-01-14 20:46] LABS: Percent Iron Saturation 9 % (20-50); Total Iron Binding Capacity 409 ug/dL (261-462); Transferrin 316 mg/dL (206-381)
[2024-01-14 21:09] LABS: Ferritin 16 ng/mL (18-464)
== END ==
PROVIDERS: PCP Family Medicine; Referring Provider Family Medicine; Visit Provider Family Medicine
DX: D64.9 Anemia, unspecified (principal)
CPT/HCPCS: 82728; 83540; 83550; 85025

== ENCOUNTER 2024-02-21 09:14 | Observation (INO) | payer MEDICARE, SELFPAY ==
[2024-02-21] VITALS (12 sets, daily range): BP systolic 112–132; BP diastolic 56–80; PULSE 61–97; RESP 16–23; TEMP 36.3–37.1; O2SAT 92–99; BMI 24.4; BMI 21.3
--- NOTE | 2024-02-21 09:35 | ED.SOB ---
HPI - SOB/Dyspnea General Chief Complaint: Shortness of Breath/Dyspnea Stated Complaint: coughing up blood, hx pneumonia Time Seen by Provider: 02/21/24 09:33 History of Present Illness HPI Narrative: Patient is a 83-year-old male with past medical history of CVA with residual deficits including slurred speech, difficulty swallowing, generalized weakness, AFib on Eliquis, hypertension, comes into the ED for hemoptysis. States that yesterday he was eating risotto and had a coughing fit. States that he was also having wheezing throughout the night. He said this has since resolved. Not complaining of any actual headache visual disturbances chest pain shortness of breath fever chills nausea vomiting abdominal pain or any other GI/ symptoms. They state that several months ago he did aspirate on a Chewed hot dog and required admission and transfer to an outside hospital. Did take his dose of Eliquis this morning. Related Data Home Medications Medication Instructions Recorded Confirmed acetaminophen 500 mg capsule 1,000 mg PO Q8H PRN 09/24/23 01/21/24 allopurinol 100 mg tablet 100 mg PO DAILY 09/24/23 01/21/24 doxazosin 2 mg tablet 6 mg PO BEDTIME 09/24/23 01/21/24 lidocaine 4 % topical cream 1 applic topical TID 09/24/23 01/21/24 (AsperFlex (lidocaine)) melatonin 3 mg tablet 6 mg PO DAILY 09/24/23 01/21/24 sennosides 8.6 mg capsule (senna) 8.6 mg PO BID 09/24/23 01/21/24 duloxetine 20 mg capsule,delayed 20 mg PO TID 10/23/23 01/21/24 release gabapentin 300 mg capsule 1,800 mg PO DAILY 01/21/24 01/21/24 Previous Rx's Medication Instructions Recorded apixaban 5 mg tablet (Eliquis) 5 mg PO BID #180 tabs 10/14/23 ciclopirox 8 % topical solution 1 applic topical DAILY #6.6 mL 10/17/23 losartan 25 mg tablet 25 mg PO DAILY #90 tabs 01/16/24 trazodone 50 mg tablet 50 mg PO ONCE PM #90 tabs 01/16/24 furosemide 20 mg tablet 20 mg PO DAILY #90 tabs 01/29/24 pantoprazole 40 mg tablet,delayed 40 mg PO DAILY #90 tabs 01/29/24 release rosuvastatin 40 mg tablet 40 mg PO DAILY #90 tabs 01/29/24 Allergies Allergy/AdvReac Type Severity Reaction Status Date / Time No Known Drug Allergies Allergy Verified 12/19/23 10:20 Review of Systems Review of Systems Narrative: HEENT: Denies headache, eye drainage, eye irritation, head trauma, sore throat, voice change Cardiovascular: Denies any chest pain, palpitations, shortness of breath, tachycardia Respiratory: Positive for cough, hemoptysis GI/: Denies any abdominal pain, nausea, vomiting, diarrhea, bright red blood per rectum, melanotic stools, urinary frequency, urinary retention, dysuria, hematuria MSK: Denies any joint pain, muscle pains, swelling Skin: Denies any rashes, lesions, discoloration Neuro: Denies any headache, lightheadedness, dizziness, fainting, weakness Psych: Denies SI/HI Patient History Medical History (Updated 02/21/24 @ 11:06 by Pelon Hatch DO) Advance care planning Routine general medical examination at health care facility Acute gout of right elbow Acute gout of right hand History of PFTs MDD (major depressive disorder), recurrent, in partial remission Surgical History (Updated 09/24/23 @ 14:56 by Tone Knight MD) S/P subdural hematoma evacuation Social History Smoking Status: Never smoker Smoking Status: Never smoker Exam Narrative Exam Narrative: General: Cooperative, comfortable, well-developed, not in acute distress HEENT: Normocephalic, atraumatic, PERRLA, normal sclera, eyelids normal, Neck: Active full range of motion, atraumatic Chest: Normal to inspection, negative crepitus, no overlying erythema ecchymosis Respiratory: Normal respiratory effort, not in acute respiratory distress, clear to auscultation bilaterally negative cough, wheeze, tachypnea, rhonchi, rales Cardiology: Regular rate rhythm negative gallop, murmur, rubs GI/: Normal to inspection, soft, nonrigid, no tenderness to palpation, exam deferred MSK: Full range of active range of motion of all 4 extremities, atraumatic Skin: No rashes lesions noted Neuro: Alert awake oriented x3, moves all 4 extremities spontaneously, cranial nerves intact, able to answer all questions appropriately follows commands appropriately, baseline slurred speech. History of CVA Psych: Cooperative, negative suicidal or homicidal ideations Initial Vital Signs Initial Vital Signs: Vital Signs Pulse Rate 61 02/21/24 09:22 Blood Pressure 132/80 02/21/24 09:22 Scores CURB-65 Confusion: No BUN >19mg/dL (>7mmol/L): Yes Respiratory rate greater or equal to 30: No SBP <90mmHg or DBP less or equal to 60mmHg: No Age 65 or Older: Yes CURB-65 Total: 2 Score 0-1 Outpatient care, Score 2 Inpt vs. Obs, Score 3 or over Inpt admit with ICU for score of 4-5 Course Orders Ordered: ED Orders 02/21/24 09:40 Complete Blood Count AUTO DIFF Stat Comprehensive Metabolic Panel Stat Lactate (Lactic Acid) Stat Lipase Stat PTT Partial Thromboplastin [place] Stat Prothrombin Time INR Stat Troponin & CK Cardiac Panel Stat 02/21/24 09:43 EKG-12 Lead Stat 02/21/24 09:44 XR chest 2V Stat 02/21/24 10:58 Blood Culture Stat Metronidazole (Flagyl) 500 mg in 100 mls @ 100 mls/hr IV NOW ONE Stop: 02/21/24 11:57 Discontinued Medications Ceftriaxone Sodium 1,000 mg/ (Sodium Chloride) 100 mls @ 200 mls/hr IV NOW ONE Stop: 02/21/24 10:59 Vital Signs Vital signs: Vital Signs - 8 hr 02/21/24 09:22 02/21/24 09:22 02/21/24 09:27 Temperature 98.7 F Pulse Rate 61 65 Respiratory Rate 16 Blood Pressure 132/80 132/80 Pulse Oximetry 99 Oxygen Delivery Method Room Air 02/21/24 09:30 02/21/24 09:30 Temperature Pulse Rate 86 Respiratory Rate 22 Blood Pressure 112/56 L Pulse Oximetry 99 Oxygen Delivery Method MDM - SOB/Dyspnea Differential Diagnosis Differential diagnosis: Likely community acquired pneumonia, asthma with exacerbation and other (Aspiration pneumonia, ACS,) Condition is:: Well Controlled Medical Records Attestation: I reviewed the patient's medical records. Lab Data Attestation: I reviewed the patient's lab results. 02/21/24 09:40 02/21/24 09:40 Labs: Lab Results 02/21/24 Range/Units 09:40 WBC 8.5 (4.5-11.0) X10^3/uL RBC 4.55 (4.5-5.9) X10^6/uL Hgb 11.9 L (13.5-17.5) g/dL Hct 37.2 L (41-53) % MCV 81.7 (80-100) fL MCH 26.1 (26-34) PG MCHC 31.9 (30-36) % RDW 27.9 H (11.6-14.8) % Plt Count 121 L (150-400) X10^3/uL Neut % (Auto) 81.7 H (50-75) % Lymph % (Auto) 11.1 L (25-40) % [place] % (Auto) 6.7 (3-14) % Eos % (Auto) 0.1 L (2-4) % Baso % (Auto) 0.4 (0-2) % Neut # (Auto) 6900 (7781-3553) /uL Lymph # (Auto) 900 L (3304-2619) /uL [place] # (Auto) 600 (0-900) /uL Eos # (Auto) 0 (0-450) /uL Baso # (Auto) 0 (0-100) /uL RBC Morphology Not Reportable Hypochromasia 2+ H Anisocytosis 3+ H PT 15.1 H (9.4-12.5) SECONDS INR 1.3 (0.9-1.3) APTT 33 (25.1-36.5) SECONDS Sodium 139 (137-145) mmol/L Potassium 4.3 (3.4-5.1) mmol/L Chloride 108 H (98-107) mmol/L Carbon Dioxide 22 (22-32) mmol/L BUN 26 H (9-20) mg/dL Creatinine 0.82 (0.66-1.25) mg/dL Estimated GFR > 60 (>60) mL/min BUN/Creatinine Ratio 31.7 H (6-22) Glucose 102 (80-110) mg/dL Lactate 1.3 (0.7-2.1) mmol/L Calcium 8.3 L (8.4-10.2) mg/dL Total Bilirubin 1.6 H (0.2-1.3) mg/dL AST 24 (17-59) IU/L ALT 22 (<50) IU/L Alkaline Phosphatase 59 (38-126) U/L Total Creatine Kinase 63 (55-170) U/L Troponin I < 0.012 (0.01-0.034) ng/mL Total Protein 6.1 L (6.3-8.2) g/dL Albumin 3.7 (3.5-5.0) g/dL Globulin 2.4 (1.7-4.1) g/dL Albumin/Globulin Ratio 1.5 (1.0-2.8) Lipase 15 L (23-300) U/L ECG Data Attestation: I personally reviewed and interpreted this ECG as follows: Interpretation: EKG interpreted by ED physician atrial fibrillation 82 QTC [address] changes no STEMI MDM Narrative Medical decision making narrative: Patient is a 83-year-old male with past medical history of AFib on Eliquis, CVA with residual dysphagia and weakness presenting to the emergency department for cough and hemoptysis. Yesterday stating that he was eating Risotto and possibly aspirated, has had 2 episodes of hemoptysis bright red, but no hemorrhage. Patient low end of normal in regards to pulse ox, not requiring supplemental oxygen, 91 and 93%. Chest x-ray is showing multifocal pneumonia, curb 65 elevated therefore will require admission to the hospital for IV antibiotics and further evaluation and treatment for aspiration pneumonia. The patient's management plan was discussed Dr. Aguilar, who agrees to admit the patient to their service and assumes care of this patient at this time. Full admission orders will be placed by the primary team. Discharge Plan Departure Patient Disposition: Admitted As Inpatient Clinical Impression: Multifocal pneumonia
--- NOTE | 2024-02-21 09:44 | DI.RAD.S_ITS ---
PROCEDURE: XR CHEST 2V INDICATIONS: cough TECHNIQUE: 2 views of the chest were acquired. COMPARISON: [facility] ([facility]), CR, XR CHEST 2V, 08/20/2022, 11:02. FINDINGS: Overlying EKG lead slightly limit evaluation. Surgical changes and devices: Surgical clips in the distal esophagus/gastric fundus. Lungs and pleura: Multifocal patchy consolidation, notably in the middle lobe/lingula as well as bilateral lower lobes. Trace left pleural effusion. No pleural effusions or pneumothorax. Mediastinum: Cardiomegaly, stable. Tortuous thoracic aorta, as before. Aortic arch is calcified, indicating atherosclerosis. Bones and chest wall: No suspicious bony abnormalities. Soft tissues appear unremarkable. IMPRESSION: Multifocal basilar patchy consolidation with trace left pleural effusion suggestive of atelectasis, aspiration and/or pneumonia. Dictated by: Mar Morley M.D. on 02/21/2024 at 9:43 Approved by: Mar Morley M.D. on 02/21/2024 at 9:47
--- NOTE | 2024-02-21 09:52 | EKG_ITS ---
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
[2024-02-21 09:55] LABS: Add Manual Diff / Slide Review NO; Basophils Absolute Auto 0 /uL (0-100); Basophils Percent Auto 0.4 % (0-2); Eosinophils Absolute Auto 0 /uL (0-450); Eosinophils Percent Auto 0.1 % (2-4); Hematocrit 37.2 % (41-53); Hemoglobin 11.9 g/dL (13.5-17.5); Lymphocytes Absolute Auto 900 /uL (1100-4500); Lymphocytes Percent Auto 11.1 % (25-40); Mean Corpuscular HGB Conc 31.9 % (30-36); Mean Corpuscular Hemoglobin 26.1 PG (26-34); Mean Corpuscular Volume 81.7 fL (80-100); Monocytes Absolute Auto 600 /uL (0-900); Monocytes Percent Auto 6.7 % (3-14); Neutrophils Absolute Auto 6900 /uL (1500-7000); Neutrophils Percent Auto 81.7 % (50-75); Platelet Count 121 X10^3/uL (150-400); Red Blood Cell Count 4.55 X10^6/uL (4.5-5.9); Red Cell Distribution Width 27.9 % (11.6-14.8); White Blood Cell Count 8.5 X10^3/uL (4.5-11.0)
[2024-02-21 09:56] LABS: INR 1.3 (0.9-1.3); Prothrombin Time 15.1 SECONDS (9.4-12.5)
[2024-02-21 09:59] LABS: PTT Partial Thromboplastin Tim 33 SECONDS (25.1-36.5)
[2024-02-21 10:00] LABS: Alanine Aminotransferase 22 IU/L (<50); Albumin 3.7 g/dL (3.5-5.0); Albumin Globulin Ratio 1.5 (1.0-2.8); Alkaline Phosphatase 59 U/L (38-126); Aspartate Aminotransferase 24 IU/L (17-59); BUN Creatinine Ratio 31.7 (6-22); Bilirubin Total 1.6 mg/dL (0.2-1.3); Blood Urea Nitrogen 26 mg/dL (9-20); Calcium 8.3 mg/dL (8.4-10.2); Carbon Dioxide 22 mmol/L (22-32); Chloride 108 mmol/L (98-107); Creatine Kinase 63 U/L (55-170); Estimated Glomerular Filt Rate > 60 mL/min (>60); Globulin 2.4 g/dL (1.7-4.1); Glucose 102 mg/dL (80-110); HEMOLYSIS < 15 (0-50); Lactate (Lactic Acid) 1.3 mmol/L (0.7-2.1); Lipase 15 U/L (23-300); Potassium 4.3 mmol/L (3.4-5.1); Sodium 139 mmol/L (137-145); Total Protein 6.1 g/dL (6.3-8.2)
[2024-02-21 10:09] LABS: Anisocytosis 3+; Hypochromasia 2+
[2024-02-21 10:12] LABS: Troponin I < 0.012 ng/mL (0.01-0.034)
[2024-02-21] MEDS: cefTRIAXone 1,000 MG in SODIUM CHLORIDE 0.9% 100 ML 200 MG IV (11:21)
[2024-02-21] MEDS: metroNIDAZOLE 500 MG/100 ML PIGGYBACK 100 MG IV ×2 (11:59→18:46)
--- NOTE | 2024-02-21 12:43 | P.HP_ITS ---
History of Present Illness History of Present Illness Date Patient Seen: 02/21/24 Chief complaint: coughing up blood, hx pneumonia Narrative: This is an 83-year-old male with post stroke dysphagia, depression, previous aspiration pneumonia, gout, hypertension, GERD, hyperlipidemia and BPH who lives on [facility] with his . Yesterday he was eating Artichokes and Risotto when he began choking and coughing. He came into the ED today with concern about recurrent aspiration pneumonia and hypoxia. His saturation was down to 91% on room air. The chest x-ray shows bilateral basilar scarring versus infiltrates, right more than left. He was last treated for aspiration pneumonia with a 2 night hospital stay in [place] 2 months ago. His stroke was in July of 2023. 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 He follows his dysphagia with video visits to a speech therapist and his says that he had been told to stay on a pureed diet which he declines to do. He was also told to chew his food carefully and turn his head when he swallows which he tends to forget. [facility] Medical History (Updated 02/21/24 @ 13:56 by Abdias Aguilar MD) Tunnel visual field constriction Multifocal pneumonia Dysphagia as late effect of cerebrovascular accident (CVA) Anemia Insomnia Seizure disorder Frequent falls Vertigo Thyroid nodule BPH w urinary obs/LUTS Peripheral neuropathy Primary hypertension Gout History of malignant melanoma of skin Hyperlipidemia, mixed History of CVA (cerebrovascular accident) Quadrantanopsia Alcoholism in remission PVD (peripheral vascular disease) Chronic systolic heart failure Secondary hyperaldosteronism Afib Advance care planning Routine general medical examination at health care facility Acute gout of right elbow Acute gout of right hand History of PFTs MDD (major depressive disorder), recurrent, in partial remission Surgical History (Updated 02/21/24 @ 13:51 by Abdias Aguilar MD) History of CEA (carotid endarterectomy) S/P subdural hematoma evacuation Family History (Updated 02/21/24 @ 13:51 by Abdias Aguilar MD) Father Lung cancer Social History household members: significant other Smoking Status: Never smoker alcohol intake: current Meds Home Medications and Allergies Home Medications Medication Instructions Recorded Confirmed Type acetaminophen 500 mg capsule 1,000 mg PO Q8H PRN Pain (Scale 09/24/23 02/21/24 History Score 4-6) allopurinol 100 mg tablet 100 mg PO DAILY 09/24/23 02/21/24 History doxazosin 2 mg tablet 6 mg PO BEDTIME 09/24/23 02/21/24 History lidocaine 4 % topical cream 1 applic topical TID PRN Pain 09/24/23 02/21/24 History (AsperFlex (lidocaine)) (Scale Score 4-6) melatonin 3 mg tablet 6 mg PO DAILY 09/24/23 02/21/24 History sennosides 8.6 mg capsule (senna) 8.6 mg PO BID 09/24/23 02/21/24 History apixaban 5 mg tablet (Eliquis) 5 mg PO BID #180 tabs 10/14/23 02/21/24 Rx duloxetine 20 mg capsule,delayed 30 mg PO TID 10/23/23 02/21/24 History release losartan 25 mg tablet 25 mg PO DAILY #90 tabs 01/16/24 02/21/24 Rx trazodone 50 mg tablet 50 mg PO ONCE PM #90 tabs 01/16/24 02/21/24 Rx furosemide 20 mg tablet 20 mg PO DAILY #90 tabs 01/29/24 02/21/24 Rx pantoprazole 40 mg tablet,delayed 40 mg PO DAILY #90 tabs 01/29/24 02/21/24 Rx release rosuvastatin 40 mg tablet 40 mg PO DAILY #90 tabs 01/29/24 02/21/24 Rx pregabalin 200 mg capsule 200 mg PO TID 02/21/24 02/21/24 History Allergies Allergy/AdvReac Type Severity Reaction Status Date / Time No Known Drug Allergies Allergy Verified 12/19/23 10:20 Review of Systems Review of Systems Narrative: Positive for coughing, weakness, difficulty swallowing and tunnel vision. Negative for fevers, chills, sweats abdominal pain, chest pain, shortness breast, bleeding, rashes, dysuria. Exam Vital Signs (past 8 hours): - 02/21/24 09:22 02/21/24 09:22 02/21/24 09:27 Temperature 98.7 F Pulse Rate 61 65 Respiratory Rate 16 Blood Pressure 132/80 132/80 Pulse Oximetry 99 Oxygen Delivery Method Room Air 02/21/24 09:30 02/21/24 09:30 02/21/24 10:03 Temperature Pulse Rate 86 83 Respiratory Rate 22 Blood Pressure 112/56 L Pulse Oximetry 99 95 Oxygen Delivery Method 02/21/24 10:30 02/21/24 11:00 Temperature Pulse Rate 78 81 Respiratory Rate 20 20 Blood Pressure Pulse Oximetry 93 92 Oxygen Delivery Method Oxygen Delivery Method Room Air Narrative Exam Narrative: He is alert and oriented x3. His hearing is adequate. He is in no apparent distress. He is not actively coughing or choking. Throat looks normal. No lymph nodes are felt head, neck, supraclavicular area. Pupils are equally round and reactive to light and accommodation. Extraocular muscles are intact. Sclerae are pink and nonicteric. There is no thyromegaly. No carotid bruits are heard. JVD is less than 6 cm. Heart is regular rate and rhythm without murmur. Lungs are clear to auscultation bilaterally. Abdomen is soft, bowel sounds positive, nontender, no organomegaly. Extremities have no ankle edema. Skin has no rash. Neurologic exam: Mild left-sided dysmetria. No asymmetric upper or lower extremity motor function. Legal Office Administrator are 3/5. There is no tremor. Cranial nerves 2-12 test intact. 30? lateral vision lost on both sides creating a moderate amount of tunnel vision. Objective Labs 02/21/24 09:40 02/21/24 09:40 Labs: Laboratory Results - last 24 hr 02/21/24 09:40 WBC 8.5 RBC 4.55 Hgb 11.9 L Hct 37.2 L MCV 81.7 MCH 26.1 MCHC 31.9 RDW 27.9 H Plt Count 121 L Neut % (Auto) 81.7 H Lymph % (Auto) 11.1 L Livingston % (Auto) 6.7 Eos % (Auto) 0.1 L Baso % (Auto) 0.4 Neut # (Auto) 6900 Lymph # (Auto) 900 L Livingston # (Auto) 600 Eos # (Auto) 0 Baso # (Auto) 0 RBC Morphology Not Reportable Hypochromasia 2+ H Anisocytosis 3+ H PT 15.1 H INR 1.3 APTT 33 Sodium 139 Potassium 4.3 Chloride 108 H Carbon Dioxide 22 BUN 26 H Creatinine 0.82 Estimated GFR > 60 BUN/Creatinine Ratio 31.7 H Glucose 102 Lactate 1.3 Calcium 8.3 L Total Bilirubin 1.6 H AST 24 ALT 22 Alkaline Phosphatase 59 Total Creatine Kinase 63 Troponin I < 0.012 Total Protein 6.1 L Albumin 3.7 Globulin 2.4 Albumin/Globulin Ratio 1.5 Lipase 15 L Assessment & Plan Assessment & Plan narrative: This is an 83-year-old male with post stroke dysphagia, depression, previous aspiration pneumonia, gout, hypertension, GERD, hyperlipidemia and BPH who lives on [facility] with his . Yesterday he was eating Artichokes and Risotto when he began choking and coughing. He came into the ED today with concern about recurrent aspiration pneumonia and hypoxia. His saturation was down to 91% on room air. The chest x-ray shows bilateral basilar scarring versus infiltrates, right more than left. Recurrent Aspiration Pneumonia, Present on admission, Active -Secondary to Post stroke Dysphagia -IV ceftriaxone and IV metronidazole. -speech therapy/swallow evaluation. -monitor for hypoxia. HTN/Atrial Fibrillation, present on admission, active. -continue apixaban, losartan. BPH, present on admission, chronic Continue doxazosin Depression, present on admission, chronic -continue duloxetine 30 mg t.i.d. -continue trazodone Peripheral neuropathy, present on admission, chronic -continue duloxetine and pregabalin Gout -continue allopurinol Backup decision maker is his Anticoagulated with apixaban for DVT prevention. Time-Based Coding :: [TOTAL MINUTES] spent with patient and on the chart (including review of chart, obtaining history, exam, reviewing outside data, placing orders, documenting exam and treatment plan, and counseling patient) on [DATE].
[2024-02-21] MEDS: SODIUM CHLORIDE 0.9% 1,000 ML 100 ML IV (13:18)
[2024-02-21] MEDS: PREGABALIN 25 MG CAPSULE 50 MG PO ×2 (15:00→20:57)
[2024-02-21] MEDS: PREGABALIN 75 MG CAPSULE 150 MG PO ×2 (15:01→20:57)
[2024-02-21] MEDS: DULOXETINE 30 MG CAPSULE PO ×2 (15:01→20:57)
[2024-02-21] MEDS: DOXAZOSIN 2 MG TABLET 6 MG PO (20:57)
[2024-02-21] MEDS: APIXABAN 5 MG TABLET PO (20:57)
[2024-02-21] MEDS: TRAZODONE 50 MG TABLET PO (20:57)
[2024-02-21] MEDS: MELATONIN 3 MG TABLET 6 MG PO (20:58)
[2024-02-21] MEDS: SENNOSIDES 8.6 MG TABLET PO (20:58)
[2024-02-22] VITALS (8 sets, daily range): BP systolic 114–143; BP diastolic 68–87; PULSE 63–95; RESP 18–20; TEMP 36.4–36.6; O2SAT 95–98
[2024-02-22] MEDS: metroNIDAZOLE 500 MG/100 ML PIGGYBACK 100 MG IV ×4 (00:49→18:39)
[2024-02-22] MEDS: SODIUM CHLORIDE 0.9% 1,000 ML 100 ML IV ×2 (00:51→11:46)
[2024-02-22] MEDS: PANTOPRAZOLE DR 40 MG TABLET PO (07:07)
--- NOTE | 2024-02-22 08:18 | P.PN_ITS ---
Subjective Subjective Date Patient Seen: 02/22/24 Interval history: He is very upbeat and happy to hear that he needs only 1 more day of IV treatment. There are no new labs to review. Exam Vital Signs (past 8 hours): - 02/22/24 00:38 02/22/24 04:16 02/22/24 07:00 Temperature 97.6 F 98 F Pulse Rate 78 95 H Respiratory Rate 18 20 Blood Pressure 120/75 114/68 Pulse Oximetry 95 95 Oxygen Delivery Method Room Air Oxygen Flow Rate 0 0 02/22/24 07:41 Temperature 97.5 F L Pulse Rate 80 Respiratory Rate 19 Blood Pressure 135/87 Pulse Oximetry 95 Oxygen Delivery Method Oxygen Flow Rate 0 Oxygen Delivery Method Room Air Oxygen Flow Rate 0 Narrative Exam Narrative: Upbeat, oriented, no apparent distress. Heart is regular rate and rhythm without murmur Extremities have no ankle edema Lungs are clear to auscultation bilaterally. Objective Labs 02/21/24 09:40 02/21/24 09:40 Labs: Laboratory Results - last 24 hr 02/21/24 09:40 WBC 8.5 RBC 4.55 Hgb 11.9 L Hct 37.2 L MCV 81.7 MCH 26.1 MCHC 31.9 RDW 27.9 H Plt Count 121 L Neut % (Auto) 81.7 H Lymph % (Auto) 11.1 L Mcmullen % (Auto) 6.7 Eos % (Auto) 0.1 L Baso % (Auto) 0.4 Neut # (Auto) 6900 Lymph # (Auto) 900 L Mcmullen # (Auto) 600 Eos # (Auto) 0 Baso # (Auto) 0 RBC Morphology Not Reportable Hypochromasia 2+ H Anisocytosis 3+ H PT 15.1 H INR 1.3 APTT 33 Sodium 139 Potassium 4.3 Chloride 108 H Carbon Dioxide 22 BUN 26 H Creatinine 0.82 Estimated GFR > 60 BUN/Creatinine Ratio 31.7 H Glucose 102 Lactate 1.3 Calcium 8.3 L Total Bilirubin 1.6 H AST 24 ALT 22 Alkaline Phosphatase 59 Total Creatine Kinase 63 Troponin I < 0.012 Total Protein 6.1 L Albumin 3.7 Globulin 2.4 Albumin/Globulin Ratio 1.5 Lipase 15 L PFS Medical History (Updated 02/21/24 @ 13:56 by Abdias Aguilar MD) Tunnel visual field constriction Multifocal pneumonia Dysphagia as late effect of cerebrovascular accident (CVA) Anemia Insomnia Seizure disorder Frequent falls Vertigo Thyroid nodule BPH w urinary obs/LUTS Peripheral neuropathy Primary hypertension Gout History of malignant melanoma of skin Hyperlipidemia, mixed History of CVA (cerebrovascular accident) Quadrantanopsia Alcoholism in remission PVD (peripheral vascular disease) Chronic systolic heart failure Secondary hyperaldosteronism Afib Advance care planning Routine general medical examination at health care facility Acute gout of right elbow Acute gout of right hand History of PFTs MDD (major depressive disorder), recurrent, in partial remission Surgical History (Updated 02/21/24 @ 13:51 by Abdias Aguilar MD) History of CEA (carotid endarterectomy) S/P subdural hematoma evacuation Family History (Updated 02/21/24 @ 13:51 by Abdias Aguilar MD) Father Lung cancer Social History household members: significant other Smoking Status: Never smoker alcohol intake: current Assessment & Plan Assessment & Plan narrative: This is an 83-year-old male with post stroke dysphagia, depression, previous aspiration pneumonia, gout, hypertension, GERD, hyperlipidemia and BPH who lives on [facility] with his . Yesterday he was eating Artichokes and Risotto when he began choking and coughing. He came into the ED today with concern about recurrent aspiration pneumonia and hypoxia. His saturation was down to 91% on room air. The chest x-ray shows bilateral basilar scarring versus infiltrates, right more than left. Recurrent Aspiration Pneumonia, Present on admission, Active -Secondary to Post stroke Dysphagia -IV ceftriaxone and IV metronidazole -speech therapy/swallow evaluation. -monitor for hypoxia. -anticipate discharge stability on 02/23/2024 HTN/Atrial Fibrillation, present on admission, active. -continue apixaban, losartan. BPH, present on admission, chronic Continue doxazosin Depression, present on admission, chronic -continue duloxetine 30 mg t.i.d. -continue trazodone Peripheral neuropathy, present on admission, chronic -continue duloxetine and pregabalin Gout -continue allopurinol Backup decision maker is his Anticoagulated with apixaban for DVT prevention. Time-Based Coding :: [TOTAL MINUTES] spent with patient and on the chart (including review of chart, obtaining history, exam, reviewing outside data, placing orders, documenting exam and treatment plan, and counseling patient) on [DATE].
[2024-02-22] MEDS: allopurinoL 100 MG TABLET PO (08:55)
[2024-02-22] MEDS: PREGABALIN 75 MG CAPSULE 150 MG PO ×3 (08:55→21:16)
[2024-02-22] MEDS: FUROSEMIDE 20 MG TABLET PO (08:55)
[2024-02-22] MEDS: APIXABAN 5 MG TABLET PO ×2 (08:55→21:15)
[2024-02-22] MEDS: ATORVASTATIN 20 MG TABLET 80 MG PO (08:56)
[2024-02-22] MEDS: SENNOSIDES 8.6 MG TABLET PO (08:56)
[2024-02-22] MEDS: DULOXETINE 30 MG CAPSULE PO ×3 (08:56→21:14)
[2024-02-22] MEDS: LOSARTAN 25 MG TABLET PO (08:56)
[2024-02-22] MEDS: PREGABALIN 25 MG CAPSULE 50 MG PO ×2 (08:57→15:56)
[2024-02-22] MEDS: cefTRIAXone 1,000 MG in SODIUM CHLORIDE 0.9% 100 ML 200 MG IV (11:57)
--- NOTE | 2024-02-22 15:29 | CM.DANOTE ---
Initial DCP Assessment Note Pt is a 83 yo male, resident of [facility], arrives after aspirating on his artichoke and risotto meal and gulped wine. PCP: Tone Knight Payer: Benson RHODES Reviewed chart, pt discussed in multidisciplinary rounds this morning. Patient with hx of stroke and significant residual deficits. Patient was flown [place] to [facility], transferred to [facility] then to for his stroke rehab. Patient made significant improvement functionally and able to complete ADLs independently. Met w/patient to introduce self and role. Patient lives with spouse on [place], cooks, cleans, completes all ADLs indp, does not drive. Patient shares that he is a recovering alcoholic and has been able to have only small sips of wine out at dinner with his until yesterday when he gulped/binged on his 's wine while she was out of their home. Patient is at risk of aspiration since his stroke. Patient reports having had HH PT but needed to see DIRECTOR OF SPEECH PATHOLOGY via telehealth. Patient plans to return to sipping wine at dinner with his only and cannot tolerate any other drinking without over doing. Patient denies needs from this MANAGING SUPERVISOR, plans to return home w/his , outpatient follow up. No barriers identified at this time to patient's safe discharge home w/family to assist; close outpatient f/u recommended. CM team will plan to follow clinical course closely in case any DC needs or concerns arise. FABRICE Coates Discharge Planning/Care Management Advanced directive, confirm from FAMILY Start: 02/21/24 13:11 Freq: Q24H Status: Inactive Protocol: Document 02/21/24 14:14 BT (Rec: 02/21/24 14:18 BT [id number]) Co-signed By Karen Knight RN Advance Directive, confirm on record Time 14:15 Person contacted Pt Copy received No CM Discharge Assessment Start: 02/22/24 15:28 Freq: Status: Active Protocol: Document 02/22/24 15:28 JW (Rec: 02/22/24 15:29 JW [id number]) Discharge Planning Assessment Assigned Director Software FABRICE Ibarra DPOA/Assigned Designee Name Nola Griggs, spouse Contact Information [phone] Advance Directives? Yes Advance Directives on File No History Provided By Patient,Medical Record Prior Living Arrangements Apartment/Condo Household Members significant other Type of transporation used prior to Relies on Others admit Independent with ADL's Yes Is patient alert and oriented? Yes Barriers to Discharge No Discharge Plan Home Transportation Arrangement Spouse Referrals Initiated None needed
--- NOTE | 2024-02-22 19:25 | PC.NURSE ---
pt has had an uneventful day; he has not required any supplemental o2; he has minimal coughing and no hemoptysis noted today; plan for discharge tomorrow
[2024-02-22] MEDS: TRAZODONE 50 MG TABLET PO (21:15)
[2024-02-22] MEDS: MELATONIN 3 MG TABLET 6 MG PO (21:15)
[2024-02-22] MEDS: DOXAZOSIN 2 MG TABLET 6 MG PO (21:16)
[2024-02-23] VITALS: BP 145/88; PULSE 81; RESP 17; TEMP 36.1; O2SAT 93
[2024-02-23] MEDS: metroNIDAZOLE 500 MG/100 ML PIGGYBACK 100 MG IV ×2 (00:17→05:55)
[2024-02-23] MEDS: SODIUM CHLORIDE 0.9% 1,000 ML 100 ML IV (00:20)
[2024-02-23 04:00] VITALS: BP 156/96; PULSE 66; RESP 18; TEMP 36.1; O2SAT 94
[2024-02-23] MEDS: PANTOPRAZOLE DR 40 MG TABLET PO (05:55)
[2024-02-23 08:00] VITALS: BP 153/78; PULSE 70; RESP 15; TEMP 35.9; O2SAT 93
[2024-02-23] MEDS: SENNOSIDES 8.6 MG TABLET PO (09:06)
[2024-02-23] MEDS: allopurinoL 100 MG TABLET PO (09:06)
[2024-02-23] MEDS: PREGABALIN 25 MG CAPSULE 50 MG PO (09:06)
[2024-02-23] MEDS: DULOXETINE 30 MG CAPSULE PO (09:06)
[2024-02-23] MEDS: ATORVASTATIN 20 MG TABLET 80 MG PO (09:06)
[2024-02-23] MEDS: APIXABAN 5 MG TABLET PO (09:06)
[2024-02-23] MEDS: PREGABALIN 75 MG CAPSULE 150 MG PO (09:06)
[2024-02-23] MEDS: FUROSEMIDE 20 MG TABLET PO (09:06)
[2024-02-23] MEDS: LOSARTAN 25 MG TABLET PO (09:06)
--- NOTE | 2024-02-23 10:17 | DIET.CONS ---
Dietary Consultation Note Admission Date: 02/21/2024 11:19 Assessment: 83 y M admitted for recurrent aspiration pneumonia. PMH of CVA 07/2023 and post-stroke dysphagia. Nutrition consulted for weight loss. Met w/ pt at bedside. Report good appetite here and at home, 100% recorded po intakes. Eating breakfast during assessment, but majority of food is gone. Tolerates soft and cut up fish, chicken, and ham. Doesn't always follow a pureed diet recc from outpatient SUSTAINABILITY PROJECT MANAGER. Reports tolerates minced and moist well, but considering implementing some parts of recc diet more. He or cooks meals or out to eat 1-2x/wk. Sips of wine at meals. Weight hx: Reports 205 lb beginning of yr and intentional weight loss to 195 lb before CVA, with goal of 185 lb. Then, post CVA, unintentional weight loss to 180 lb. Pt states that his keeps track of his weight, doesn't feel recent weight recorded of 153 lb per EMR (69.5 kg) is accurate, but that 174 lb per EMR (79.379 kg) may be more in line with his current weight. Updated weight not taken at this time, mid-eating. Diet recall: B-hot cereal, v8 L-pasta, fish D-protein, carb, veg Sometimes Boost, but doesn't enjoy taste Pt declined NFPE at this time. Ht: 180.34 cm Wt: 69.5 kg vs 79.379 kg BMI: 21.3 UBW: 96.162 kg on 07/02/23 (-17% weight loss within 9 months, non-severe), 83.461 kg on 01/21/24 (-5% weight loss in 1 month, severe) Last BM: 02/20/24 (02/21/24 13:02) MNA: Diony Score: 19 Diet: 02/21/24 Dinner Dysphagia Diet Diet Modifications: Food Texture: Level 5 - Minced & Moist Liquid Consistency: Level 0 - Thin Nutrition Percent Meal Consumed 100% 02/23/24 10:10 Percent Meal Consumed 100% 02/22/24 18:00 Percent Meal Consumed 100% 02/22/24 09:28 Percent Meal Consumed 100% 02/21/24 18:13 Labs: RBC 4.55 X10^6/uL (4.5-5.9) 02/21/24 09:40 Hgb 11.9 g/dL (13.5-17.5) L 02/21/24 09:40 Hct 37.2 % (41-53) L 02/21/24 09:40 Creatinine 0.82 mg/dL (0.66-1.25) 02/21/24 09:40 Lactate 1.3 mmol/L (0.7-2.1) 02/21/24 09:40 Nutrition Diagnosis: Unintentional weight loss r/t change in diet and swallowing function aeb 17% weight loss in 9 months (non-severe), 5% weight loss in 1 month (severe) Interventions: 1. Pt to d/c today - discussed following topics: protein/energy additions to diet to prevent weight loss/ be at pt's goal weight of 180-185 lb (which is within range of normal BMI for age), pureed diet, recc f/u with SUSTAINABILITY PROJECT MANAGER Monitoring/Evaluations: po intakes, diet tolerance Electronically Signed by: Elyssa Ledesma 02/23/24 10:17 Clinical Dietitian [address] [id number]
--- NOTE | 2024-02-23 10:20 | PM.DS.1 ---
History of Present Illness History of Present Illness Date Patient Seen: 02/23/24 Time Patient Seen: 10:21 Chief complaint: coughing up blood, hx pneumonia Narrative: Per admitting provider, This is an 83-year-old male with post stroke dysphagia, depression, previous aspiration pneumonia, gout, hypertension, GERD, hyperlipidemia and BPH who lives on [facility] with his . Yesterday he was eating Artichokes and Risotto when he began choking and coughing. He came into the ED today with concern about recurrent aspiration pneumonia and hypoxia. His saturation was down to 91% on room air. The chest x-ray shows bilateral basilar scarring versus infiltrates, right more than left. He was last treated for aspiration pneumonia with a 2 night hospital stay in [place] 2 months ago. His stroke was in July of 2023. 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 He follows his dysphagia with video visits to a speech therapist and his says that he had been told to stay on a pureed diet which he declines to do. He was also told to chew his food carefully and turn his head when he swallows which he tends to forget. Discharge Providers Provider Date of admission: 02/21/24 11:19 Discharge Date: 02/23/24 Primary care physician: Tone Knight MD Consults: 02/21/24 12:40 Consult to Speech Therapy Evaluate & Treat Comment: Physician Instructions: Evaluate and treat 02/21/24 13:11 Consult to Dietitian, Adult Routine Comment: Reason For Exam: Weight loss Consult to Speech Therapy Evaluate & Treat Comment: Physician Instructions: Evaluate and treat Discharge provider: Pelon Solitario DO Summary Hospital Course Discharge Diagnosis: Recurrent Aspiration Pneumonia, Present on admission, Active HTN/Atrial Fibrillation, present on admission, active. BPH, present on admission, chronic Depression, present on admission, chronic Peripheral neuropathy, present on admission, chronic Gout Hospital Course: This is an 83-year-old male with post stroke dysphagia, depression, previous aspiration pneumonia, gout, hypertension, GERD, hyperlipidemia and BPH who lives on [facility] with his admitted for aspiration pneumonia. He has known chronic dysphagia, frequently does not follow previous recommendations. He did have improvement in symptoms with antibiotics. These were continued on discharge. No speech therapy evaluation was able to be performed over the holiday weekend, yet patient reported understanding of previous swallow recommendations given to him to avoid aspiration. He was discharged home or oral augementin to complete 7 day total course. Recommend continued outpatient speech therapy after discharge. Time Spent with Patient Time spent: Greater than 30 minutes Exam Vital Signs (past 8 hours): - 02/23/24 04:00 02/23/24 08:00 Temperature 96.9 F L 96.7 F L Pulse Rate 66 70 Respiratory Rate 18 15 Blood Pressure 156/96 H 153/78 H Pulse Oximetry 94 93 Oxygen Flow Rate 0 0 Oxygen Delivery Method Room Air Oxygen Flow Rate 0 Narrative Exam Narrative: Upbeat, oriented, no apparent distress. Heart is regular rate and rhythm without murmur Extremities have no ankle edema Lungs are clear to auscultation bilaterally. Objective Labs 02/21/24 09:40 02/21/24 09:40 PFS Medical History (Updated 02/21/24 @ 13:56 by Abdias Aguilar MD) Tunnel visual field constriction Multifocal pneumonia Dysphagia as late effect of cerebrovascular accident (CVA) Anemia Insomnia Seizure disorder Frequent falls Vertigo Thyroid nodule BPH w urinary obs/LUTS Peripheral neuropathy Primary hypertension Gout History of malignant melanoma of skin Hyperlipidemia, mixed History of CVA (cerebrovascular accident) Quadrantanopsia Alcoholism in remission PVD (peripheral vascular disease) Chronic systolic heart failure Secondary hyperaldosteronism Afib Advance care planning Routine general medical examination at health care facility Acute gout of right elbow Acute gout of right hand History of PFTs MDD (major depressive disorder), recurrent, in partial remission Surgical History (Updated 02/21/24 @ 13:51 by Abdias Aguilar MD) History of CEA (carotid endarterectomy) S/P subdural hematoma evacuation Family History (Updated 02/21/24 @ 13:51 by Abdias Aguilar MD) Father Lung cancer Social History household members: significant other Smoking Status: Never smoker alcohol intake: current Discharge Plan Discharge Plan Patient Disposition: Home Provider Discharge Comment: You were admitted to the hospital with pneumonia, possibly from small amounts of aspiration. Please complete antibiotic course at home, okay to start these tomorrow with the holiday today. Continue to follow swallow recommendations previously given. Discharge orders & Medications Prescriptions: New amoxicillin-pot clavulanate 875-125 mg tablet 1 tab PO BID 5 Days Qty: 10 0RF Continued trazodone 50 mg tablet 50 mg PO ONCE PM Qty: 90 3RF Rx Instructions: Take 1 tablet (50mg) by mouth at bedtime. losartan 25 mg tablet 25 mg PO DAILY Qty: 90 1RF Rx Instructions: Take 1 tablet (25mg) by mouth daily. pantoprazole 40 mg tablet,delayed release (DR/EC) 40 mg PO DAILY Qty: 90 0RF Rx Instructions: Take 1 tablet (40mg) by mouth daily on an empty stomach. rosuvastatin 40 mg tablet 40 mg PO DAILY Qty: 90 0RF furosemide 20 mg tablet 20 mg PO DAILY Qty: 90 0RF Rx Instructions: Take 1 tablet (20mg) by mouth daily. lidocaine [AsperFlex (lidocaine)] 4 % cream 1 applic topical TID PRN (Reason: Pain (Scale Score 4-6)) Rx Instructions: Apply topically 3 times per day. Apply to lower extremities where there is pain. melatonin 3 mg tablet 6 mg PO DAILY Rx Instructions: Take 2 tablets (6mg) by mouth at bedtime. senna 8.6 mg capsule 8.6 mg PO BID Rx Instructions: Take 2 tablets (17.2mg) by mouth daily. acetaminophen 500 mg capsule 1,000 mg PO Q8H PRN (Reason: Pain (Scale Score 4-6)) Rx Instructions: Take 2 tablets (1,000mg) by mouth every 8 hours as needed for mild pain, moderate pain or severe pain. allopurinol 100 mg tablet 100 mg PO DAILY Rx Instructions: Take 1 tablet (100mg) by mouth daily. doxazosin 2 mg tablet 6 mg PO BEDTIME Rx Instructions: Take 3 tablets (6mg) by mouth at bedtime. duloxetine 20 mg capsule,delayed release(DR/EC) 30 mg PO TID No Action Eliquis 5 mg tablet 5 mg PO BID Qty: 180 0RF Rx Instructions: Take 1 tablet (5mg) by mouth 2 times a day. gabapentin 300 mg capsule 600 mg PO TID Qty: 360 1RF Follow up/Referrals: Tone Knight MD [Primary Care Provider] - Diet/Activity/Treatments Diet: Diet as Tolerated and Low-sodium Activity: As tolerated, no restrictions Visit Report/Discharge Packet Instructions: Aspiration Pneumonia, DI for Aspiration Pneumonia, Amoxicillin and Clavulanic Acid Stand Alone Forms: Patient Portal/API, Stroke Signs & Symptoms Discharge Data Primary Care Provider: Tone Knight
--- NOTE | 2024-02-23 10:28 | CM.DPC ---
DCP Cont. Reviewed EMR and team rounds for status updates. Pt has been medically cleared for home d/c. His is at bedside and already has a ferry pass for the trip home. No further DCP needs indicated at this time.
--- NOTE | 2024-02-23 11:23 | PC.NURSE ---
Patient took his medications well and ate breakfast well. No signs or symptoms of choking. Patient is going to be discharged back to [place] now.
== END 2024-02-23 11:37 | disposition home or self-care (01) | DRG 179 ==
LOC: ED 11:06 → AC 11:35
PROVIDERS: Admitting Provider Family Medicine; Emergency Provider Student in an Organized Health Care Education/Training Program; PCP Family Medicine; Referring Provider Student in an Organized Health Care Education/Training Program; Visit Provider Family Medicine
DX: J69.0 Pneumonitis due to inhalation of food and vomit (principal); I69.391 Dysphagia following cerebral infarction; R13.10 Dysphagia, unspecified; I10 Essential (primary) hypertension; I48.91 Unspecified atrial fibrillation; N40.0 Benign prostatic hyperplasia without lower urinary tract symptoms; F32.A Depression, unspecified; G62.9 Polyneuropathy, unspecified; M10.9 Gout, unspecified; Z79.01 Long term (current) use of anticoagulants
CPT/HCPCS: 71046; 80053; 82550; 83605; 83690; 84484; 85025; 85610; 85730; 87040; 93005; 96365; 96366; 96367; 99283; 99284; G0378; J0696